=== PATIENT | female | born 1955 | race African-American/Black ===

== ENCOUNTER 2021-07-18 11:42 | Emergency (ER) | payer MEDICAID, OTHER ==
[~2021-07-18] VITALS: Ht 170.2 cm; Wt 70.0 kg
[2021-07-18 12:42] LABS: BASOPHILS % 0.6 % (0.0-2.0); EOSINOPHILS % 0.4 % (0.0-5.0); HEMATOCRIT. 43.7 % (36.0-48.0); HEMOGLOBIN. 14.9 g/dL (12.0-16.0); LYMPHOCYTES % 28.8 % (20.0-50.0); MEAN CORPUSCULAR VOLUME 91.1 fL (81.0-99.0); MONOCYTES % 8.6 % (2.0-8.0); NEUTROPHILS % 61.6 % (40.0-76.0); PLATELET 345 x1000/uL (130-400); RED CELL DISTRIBUTION WIDTH 15.3 % (11.6-14.6)
[2021-07-18 12:52] LABS: CHLORIDE 110 mEq/L (98-107)
[2021-07-18 12:54] LABS: INR 0.9
[2021-07-18] MEDS ORDERED: IOHEXOL-300 100 ML BOTTLE ONE (15:02)
[2021-07-18 16:00] VITALS: BP 149/81
== END 2021-07-18 16:45 | disposition home or self-care (01) ==
LOC: ER 11:42
DX: K62.5 Hemorrhage of anus and rectum (principal); Z90.710 Acquired absence of both cervix and uterus; Z88.6 Allergy status to analgesic agent; Z88.5 Allergy status to narcotic agent
CPT/HCPCS: 36415; 74177; 80053; 85025; 85610; 99285; Q9967